=== PATIENT | male | born 1970 | race Caucasian/White ===

== ENCOUNTER → 2019-12-25 15:12 | Outpatient (BNVA) | payer OTHER, SELFPAY | DX: Z20.828 Contact with and (suspected) exposure to other viral communicable diseases (principal) | CPT/HCPCS: 87635 ==

== ENCOUNTER → 2020-02-06 14:57 | Outpatient (BNVA) | payer OTHER, SELFPAY | PROVIDERS: Visit Provider Nurse Practitioner Family | DX: Z11.59 Encounter for screening for other viral diseases (principal) | CPT/HCPCS: 87635 ==